=== PATIENT | female | born 1975 | race Caucasian/White ===

== ENCOUNTER 2017-05-17 14:14 | Inpatient (IN) | payer BC ==
[~2017-05-17] VITALS: Ht 162.6 cm; Wt 58.6 kg
[~2017-05-17 14:14] MED LIST: BACTRIM1 TAB; DULCOLAX5 MG PO; INSR; KEFLEX500 MG; LAC PO; LEVAQUIN500 MG PO; NOR10T PO; PROTONIX40 MG; REGLAN5 M1 PO
[2017-05-17 15:39] LABS: UA SPECIFIC GRAVITY 1.025 (1.005-1.035); microscopic required? YES; urine erythrocyte 3+ (NEGATIVE)
[2017-05-17 15:47] LABS: PLATELET COUNT 211 x10^3mcL (130-400); RED CELL DISTRIBUTION WIDTH 13.5 % (11.5-14.5)
[2017-05-17 15:54] LABS: CALCIUM 8.7 mg/dL (8.5-10.1); CARBON DIOXIDE 13.7 mmol/L (21-32); CHLORIDE SERUM 93 mmol/L (98-107); CREATININE SERUM 0.9 mg/dL (0.6-1.0); GFR1 > 60 mL/min; GLUCOSE SERUM 443 mg/dL (74-106); POTASSIUM SERUM 3.7 mmol/L (3.5-5.1); SODIUM SERUM 129 mmol/L (136-145)
[2017-05-17 16:03] LABS: ALKALINE PHOSPHATASE 114 U/L (46-116); ALT/SGPT 15 U/L (14-59); AST/SGOT 17 U/L (15-37); BILIRUBIN TOTAL 0.5 mg/dL (0.20-1.00); TOTAL PROTEIN, SERUM 7.9 g/dL (6.4-8.2)
[2017-05-17 16:10] LABS: CK-MB < 0.5 ng/mL (0-3.6); CREATINE KINASE 15 U/L (26-192)
[2017-05-17 16:30] LABS: BAND NEUTROPHIL 0 % (0-10); BASOPHIL 0 % (0-2); MONOCYTE 10 % (0-7); SEGMENTED NEUTROPHILS 85 % (37-75); rbc morphology (normal/abnorm) NORMAL (NORMAL)
[2017-05-17 16:31] LABS: PLATELET MORPHOLOGY PLATELETS NORMAL
[2017-05-17] MEDS ORDERED: RELION HUMUL100 U/M2 (18:24)
[2017-05-17 20:23] LABS: CHOLESTEROL/HDL RATIO 7.1
[2017-05-17 20:24] LABS: T3 TOTAL 0.12 ng/mL
[2017-05-17 20:27] LABS: FREE T4 1.3 ng/dL (0.76-1.46); FREE THYROXINE INDEX 2.5 ug/dL (1.4-4.5); T4(THYROXINE) 6.7 ug/dL (4.7-13.3)
[2017-05-17 20:52] LABS: CALCIUM 8.5 mg/dL (8.5-10.1); CARBON DIOXIDE 19.1 mmol/L (21-32); CHLORIDE SERUM 99 mmol/L (98-107); CREATININE SERUM 0.9 mg/dL (0.6-1.0); GFR1 > 60 mL/min; GLUCOSE SERUM 303 mg/dL (74-106); MAGNESIUM 1.7 mg/dL (1.8-2.4); PHOSPHOROUS 3.2 mg/dL (2.5-4.9); POTASSIUM SERUM 3.1 mmol/L (3.5-5.1); SODIUM SERUM 135 mmol/L (136-145)
[2017-05-17 21:14] LABS: AMPHETAMINE QUAL UR NONE DETECTED (NEG <=1000)
[2017-05-18 00:58] LABS: CALCIUM 7.7 mg/dL (8.5-10.1); CARBON DIOXIDE 18.8 mmol/L (21-32); CHLORIDE SERUM 105 mmol/L (98-107); CREATININE SERUM 0.7 mg/dL (0.6-1.0); GFR1 > 60 mL/min; GLUCOSE SERUM 249 mg/dL (74-106); MAGNESIUM 1.4 mg/dL (1.8-2.4); SODIUM SERUM 135 mmol/L (136-145)
[2017-05-18 02:57] VITALS: BP 81/55
[2017-05-18 04:00] VITALS: BP 88/59
[2017-05-18 05:55] LABS: CALCIUM 7.6 mg/dL (8.5-10.1); CARBON DIOXIDE 19.6 mmol/L (21-32); CHLORIDE SERUM 109 mmol/L (98-107); CREATININE SERUM 0.7 mg/dL (0.6-1.0); GFR1 > 60 mL/min; GLUCOSE SERUM 194 mg/dL (74-106); MAGNESIUM 1.5 mg/dL (1.8-2.4); SODIUM SERUM 137 mmol/L (136-145)
[2017-05-18 05:59] LABS: POTASSIUM SERUM 2.7 mmol/L (3.5-5.1)
[2017-05-18 07:59] VITALS: BP 87/60
[2017-05-18 10:03] LABS: CALCIUM 7.7 mg/dL (8.5-10.1); CARBON DIOXIDE 20.1 mmol/L (21-32); CHLORIDE SERUM 108 mmol/L (98-107); CREATININE SERUM 0.6 mg/dL (0.6-1.0); GFR1 > 60 mL/min; GLUCOSE SERUM 183 mg/dL (74-106); MAGNESIUM 1.9 mg/dL (1.8-2.4); PHOSPHOROUS 1.7 mg/dL (2.5-4.9); POTASSIUM SERUM 3.3 mmol/L (3.5-5.1); SODIUM SERUM 137 mmol/L (136-145)
[2017-05-18 12:20] VITALS: BP 109/80
[2017-05-18 18:07] VITALS: BP 105/54
[2017-05-18 21:00] VITALS: BP 88/60
[2017-05-19 01:00] VITALS: BP 82/59
[2017-05-19 02:00] VITALS: BP 95/58
[2017-05-19 04:00] VITALS: BP 117/72
[2017-05-19 05:44] VITALS: BP 102/60
[2017-05-19 06:54] LABS: CALCIUM 7.3 mg/dL (8.5-10.1); CHLORIDE SERUM 107 mmol/L (98-107); CREATININE SERUM 0.5 mg/dL (0.6-1.0); GFR1 > 60 mL/min; GLUCOSE SERUM 243 mg/dL (74-106); MAGNESIUM 1.6 mg/dL (1.8-2.4); PHOSPHOROUS 1.6 mg/dL (2.5-4.9); POTASSIUM SERUM 3.5 mmol/L (3.5-5.1); SODIUM SERUM 137 mmol/L (136-145)
[2017-05-19 08:48] LABS: RED CELL DISTRIBUTION WIDTH 14.1 % (11.5-14.5)
[2017-05-19 08:55] LABS: PLATELET COUNT 114 x10^3mcL (130-400)
[2017-05-19 09:18] VITALS: BP 113/66
[2017-05-19] MEDS ORDERED: NITROFURANTOIN100 MG PO (11:18)
[2017-05-19] MEDS ORDERED: LAC PO (11:19)
[2017-05-19] MEDS ORDERED: BACTRIM DS1 TAB PO (11:25)
[2017-05-19] MEDS ORDERED: LEVEMIR100 U/M1 SC (12:04)
[2017-05-19 12:31] LABS: BAND NEUTROPHIL 22 % (0-10); BASOPHIL 0 % (0-2); MONOCYTE 2 % (0-7); SEGMENTED NEUTROPHILS 71 % (37-75)
[2017-05-19 12:32] LABS: PLATELET MORPHOLOGY PLATELETS DECREASED; rbc morphology (normal/abnorm) NORMAL (NORMAL)
[2017-05-19 16:36] LABS: CALCIUM 7.3 mg/dL (8.5-10.1); CARBON DIOXIDE 22.5 mmol/L (21-32); CHLORIDE SERUM 108 mmol/L (98-107); CREATININE SERUM 0.4 mg/dL (0.6-1.0); GFR1 > 60 mL/min; GLUCOSE SERUM 221 mg/dL (74-106); SODIUM SERUM 137 mmol/L (136-145)
[2017-05-19 17:32] VITALS: BP 92/63
== END 2017-05-19 19:25 | disposition home or self-care (01) | DRG 871 ==
LOC: ED 14:14 → MU 18:09 → IC 18:09 → MU 05-18 12:20
PROVIDERS: Emergency Medicine; Family Medicine; ADMIT Family Medicine Sports Medicine
DX: A41.9 Sepsis, unspecified organism (principal); E13.10 Other specified diabetes mellitus with ketoacidosis without coma; N17.0 Acute kidney failure with tubular necrosis; N39.0 Urinary tract infection, site not specified; E87.1 Hypo-osmolality and hyponatremia; D68.69 Other thrombophilia; Z53.29 Procedure and treatment not carried out because of patient's decision for other reasons; R65.20 Severe sepsis without septic shock; R31.9 Hematuria, unspecified; D64.9 Anemia, unspecified; E87.6 Hypokalemia; E83.51 Hypocalcemia; E83.42 Hypomagnesemia; E86.0 Dehydration; Z79.4 Long term (current) use of insulin; Z68.24 Body mass index [BMI] 24.0-24.9, adult; Z90.49 Acquired absence of other specified parts of digestive tract; Z79.899 Other long term (current) drug therapy; Z83.3 Family history of diabetes mellitus; Z82.3 Family history of stroke; Z82.49 Family history of ischemic heart disease and other diseases of the circulatory system
CPT/HCPCS: 36600; 82962; 83880; 84439; 90658; J0696; J1815; J1885; J2270; J2405; J3475; J3480; J3490; J7030; J7040; Q0092

== ENCOUNTER 2017-05-20 15:05 | Inpatient (IN) | payer BC ==
[~2017-05-20] VITALS: Ht 162.6 cm; Wt 77.1 kg
[~2017-05-20 15:05] MED LIST changes: +BACTRIM DS1 TAB PO; +LEVEMIR100 U/M1 SC; +NITROFURANTOIN100 MG PO; +RELION HUMUL100 U/M2
[2017-05-20 17:50] LABS: BASOPHIL % 0.1 % (0-2); PLATELET COUNT 164 x10^3mcL (130-400); RED CELL DISTRIBUTION WIDTH 14.5 % (11.5-14.5)
[2017-05-20 17:51] LABS: CALCIUM 7.9 mg/dL (8.5-10.1); CARBON DIOXIDE 26.7 mmol/L (21-32); CHLORIDE SERUM 106 mmol/L (98-107); CREATININE SERUM 0.4 mg/dL (0.6-1.0); GFR1 > 60 mL/min; GLUCOSE SERUM 191 mg/dL (74-106); POTASSIUM SERUM 3.6 mmol/L (3.5-5.1); SODIUM SERUM 137 mmol/L (136-145)
[2017-05-20 17:56] LABS: ALKALINE PHOSPHATASE 100 U/L (46-116); ALT/SGPT 17 U/L (14-59); AST/SGOT 16 U/L (15-37); BILIRUBIN TOTAL 0.4 mg/dL (0.20-1.00)
[2017-05-20 17:58] LABS: ALBUMIN 1.9 g/dL (3.4-5.0); TOTAL PROTEIN, SERUM 5.5 g/dL (6.4-8.2)
[2017-05-21 01:14] VITALS: BP 123/85
[2017-05-21 01:22] VITALS: Ht 162.6 cm; Wt 77.1 kg
[2017-05-21 02:39] LABS: MAGNESIUM 1.8 mg/dL (1.8-2.4); PHOSPHOROUS 2.2 mg/dL (2.5-4.9)
[2017-05-21 05:38] VITALS: BP 112/72
[2017-05-21 10:08] VITALS: BP 115/80
[2017-05-21 13:27] LABS: BASOPHIL % 0.5 % (0-2); PLATELET COUNT 178 x10^3mcL (130-400); RED CELL DISTRIBUTION WIDTH 14.6 % (11.5-14.5)
[2017-05-21 13:37] LABS: CALCIUM 7.6 mg/dL (8.5-10.1); CHLORIDE SERUM 107 mmol/L (98-107); CREATININE SERUM 0.4 mg/dL (0.6-1.0); GFR1 > 60 mL/min; GLUCOSE SERUM 224 mg/dL (74-106); MAGNESIUM 1.7 mg/dL (1.8-2.4); PHOSPHOROUS 3.1 mg/dL (2.5-4.9); POTASSIUM SERUM 3.6 mmol/L (3.5-5.1); SODIUM SERUM 140 mmol/L (136-145)
[2017-05-21 14:38] VITALS: BP 131/89
[2017-05-21 16:23] LABS: UA SPECIFIC GRAVITY 1.015 (1.005-1.035); microscopic required? YES; urine erythrocyte 3+ (NEGATIVE)
[2017-05-21 16:34] LABS: IRON 30 ug/dL (50-170); TOTAL IRON BINDING CAPACITY 176 ug/dL (250-450)
[2017-05-21 16:59] LABS: RED BLOOD CELLS 3.38 M/mm3 (4.10-5.10)
[2017-05-21 17:11] VITALS: BP 118/82
[2017-05-21 20:42] VITALS: BP 127/87
[2017-05-22 06:43] LABS: BASOPHIL % 0.6 % (0-2); PLATELET COUNT 199 x10^3mcL (130-400)
[2017-05-22 06:46] VITALS: BP 128/89
[2017-05-22 06:54] LABS: RED CELL DISTRIBUTION WIDTH 15.1 % (11.5-14.5)
[2017-05-22 07:04] LABS: CALCIUM 7.9 mg/dL (8.5-10.1); CARBON DIOXIDE 29.3 mmol/L (21-32); CHLORIDE SERUM 107 mmol/L (98-107); CREATININE SERUM 0.3 mg/dL (0.6-1.0); GFR1 > 60 mL/min; GLUCOSE SERUM 136 mg/dL (74-106); MAGNESIUM 1.7 mg/dL (1.8-2.4); PHOSPHOROUS 3.1 mg/dL (2.5-4.9); POTASSIUM SERUM 3.6 mmol/L (3.5-5.1); SODIUM SERUM 140 mmol/L (136-145)
[2017-05-22 08:43] VITALS: BP 136/89
[2017-05-22] MEDS ORDERED: NOR10T PO (12:17)
[2017-05-22] MEDS ORDERED: LAC PO (12:19)
[2017-05-22 13:30] VITALS: BP 136/89
== END 2017-05-22 14:52 | disposition home or self-care (01) | DRG 438 ==
LOC: ED 15:05 → DU 05-21 00:26 → MU 05-22 06:44
PROVIDERS: Emergency Medicine; ADMIT Family Medicine
DX: K85.90 Acute pancreatitis without necrosis or infection, unspecified (principal); E43 Unspecified severe protein-calorie malnutrition; D68.69 Other thrombophilia; E11.65 Type 2 diabetes mellitus with hyperglycemia; K86.1 Other chronic pancreatitis; K86.81 Exocrine pancreatic insufficiency; E83.39 Other disorders of phosphorus metabolism; D64.9 Anemia, unspecified; M62.50 Muscle wasting and atrophy, not elsewhere classified, unspecified site; Z79.4 Long term (current) use of insulin; Z68.26 Body mass index [BMI] 26.0-26.9, adult; Z90.49 Acquired absence of other specified parts of digestive tract; Z83.3 Family history of diabetes mellitus; Z82.3 Family history of stroke
CPT/HCPCS: 82962; J1170; J1450; J1815; J1956; J2405; J3475; J7030

== ENCOUNTER 2017-06-15 17:47 | Inpatient (IN) | payer BC ==
[~2017-06-15] VITALS: Ht 162.6 cm; Wt 60.4 kg
--- NOTE | 2017-06-15 18:38 | NUR ---
AWAKE ALERT ORIENTED, STATED SINCE 11PM LAST NIGHT STARTED TO VOMIT,GREENISH COLORED FLUIDS,ALSO STARTED TO HAVE LOWER ABDOMINAL PAIN,
--- NOTE | 2017-06-15 18:57 | NUR ---
IV ESTABLISHED, MEDICATED FOR ABD, PAIN, ONE LIT NSS WIDE OPEN IN PROGRESS
--- NOTE | 2017-06-15 19:16 | NUR ---
RECIEVED REPORT FROM AZUL FRANCO. ASSUMING CARE OF PATIENT.
[2017-06-15 19:25] LABS: BASOPHIL % 0.3 % (0-2); PLATELET COUNT 318 x10^3mcL (130-400)
--- NOTE | 2017-06-15 19:27 | NUR ---
PT RESTING WITH EYES CLOSED. PT STATES HER PAIN IS NOW 4/10. PT STILL COMPLAINS OF NAUSEA. RESPIRATIONS EVEN AND UNLABORED. VITAL SIGNS STABLE. NO ACUTE DISTRESS NOTED.
[2017-06-15 19:38] LABS: CALCIUM 8.7 mg/dL (8.5-10.1); CARBON DIOXIDE 19.2 mmol/L (21-32); CHLORIDE SERUM 97 mmol/L (98-107); CREATININE SERUM 0.7 mg/dL (0.6-1.0); GFR1 > 60 mL/min; GLUCOSE SERUM 398 mg/dL (74-106); POTASSIUM SERUM 4.7 mmol/L (3.5-5.1); SODIUM SERUM 135 mmol/L (136-145)
[2017-06-15 19:43] LABS: ALBUMIN 3.2 g/dL (3.4-5.0); ALKALINE PHOSPHATASE 97 U/L (46-116); ALT/SGPT 12 U/L (14-59); AMYLASE 8 U/L (25-115); AST/SGOT 6 U/L (15-37); BILIRUBIN TOTAL 0.9 mg/dL (0.20-1.00); LIPASE 41 IU/L (73-393); TOTAL PROTEIN, SERUM 8.1 g/dL (6.4-8.2)
[2017-06-15 20:34] LABS: AMPHETAMINE QUAL UR NONE DETECTED (NEG <=1000)
--- NOTE | 2017-06-15 20:35 | NUR ---
PT STATES HER PAIN IS 8/10. PAIN MEDICATION GIVEN ORDERED. VITAL SIGNS STABLE RESPIRATIONS EVEN AND UNLABORED. NO ACUTE DISTRESS NOTED.
[2017-06-15] MEDS ORDERED: HUMULIN N100 U/1 ML SC (20:50)
[2017-06-15] MEDS ORDERED: HUMALOG100 U/ML SC (20:50)
--- NOTE | 2017-06-15 21:09 | NUR ---
REPORT GIVEN TO CHERRIE ON MED/TELE.
[2017-06-15 21:40] VITALS: BP 134/78
--- NOTE | 2017-06-15 21:46 | NUR ---
RECEIVED PATIENT FROM ED VIA GUERNEY, PATIENT ALERT AND ORIENTED SPOUSE AT BEDSIDE, IV ACCESS TO LAC WNL, TELE # 7 ST, C/O PAIN TO ABD WILL MEDICATE ORDERED, ORIENTED PATIENT TO ROOM AND SURROUNDINGS, BED IN LOW POSITION, BED RAILS UP X 2, CALL LIGHT WITHIN REACH, WILL ENDORSE CARE TO PRIMARY NURSE CHERRIE FRANCO
--- NOTE | 2017-06-15 22:00 | NUR ---
PT C/O NAUSEA. ZOFRAN 4 MG IV GIVEN.
[2017-06-15 22:13] LABS: T3 TOTAL 0.44 ng/mL
[2017-06-15 22:18] LABS: FREE T4 1.22 ng/dL (0.76-1.46); FREE THYROXINE INDEX 3.1 ug/dL (1.4-4.5); T4(THYROXINE) 8.3 ug/dL (4.7-13.3)
[2017-06-15 22:33] LABS: MAGNESIUM 1.9 mg/dL (1.8-2.4)
--- NOTE | 2017-06-15 22:40 | NUR ---
PT VERBALIZED NO RELIEF OF NAUSEA FROM ZOFRAN IV. WILL CONTINUE TO MONITOR AND MEDICATED ORDERED.
--- NOTE | 2017-06-15 22:40 | NUR ---
PT VERBALIZED NO RELIEF OF NAUSEA FROM ZOFRAN IV. WILL CONTINUE TO MONITOR AND MEDICATE ORDERED.
[2017-06-15 22:46] LABS: UA SPECIFIC GRAVITY 1.025 (1.005-1.035); microscopic required? YES; urine erythrocyte TRACE (NEGATIVE)
--- NOTE | 2017-06-15 22:54 | NUR ---
PT MEDICATED W/ PHENERGAN 12.5 MG IV FOR C/O NAUSEA AND TORADOL 30 MG IV FOR C/O ABDL PAIN 03/18.
--- NOTE | 2017-06-15 23:30 | NUR ---
PT APPEARS TO BE SLEEPING MORE COMFORTABLY . NO C/O NAUSEA AND PAIN AT THIS TIME.
--- NOTE | 2017-06-16 03:00 | NUR ---
K-PAD APPLIED TO ABDOMINAL AREA ORDERED.
--- NOTE | 2017-06-16 03:37 | NUR ---
PT C/O NAUSEA. NO VOMITING NOTED. PHENERGAN 12.5 MG IV GIVEN.
--- NOTE | 2017-06-16 04:05 | NUR ---
PT APPEARS TO BE SLEEPING COMFORTABLY. PT INFORMED AT THIS TIME. THAT CT DEPT WILL BE CALLED TO TAKE HER DOWN FOR CT ABDOMEN.
--- NOTE | 2017-06-16 06:08 | NUR ---
INFORMED DR. MOSER REGARDING ACCUCHECK [id number] ([id number]). PT WAS GIVEN 18 UNITS REG INSULIN COVERAGE PER RISS.
[2017-06-16 06:09] VITALS: BP 122/77
--- NOTE | 2017-06-16 06:24 | NUR ---
PT SLEPT AT LONG INTERVALS. SHE C/O ON AND OFF NAUSEA AND ABDL PAIN AND WAS MEDICATED ORDERED. PT ON NPO EXCEPT MEDS ORDERED. PT FOR CT OF ABDOMEN W/O CONTRAST. WAITING FOR VALVE MAKER AMBIKA TO COME AND TAKE PT DOWN. K-PAD TO ABDOMEN IN PLACE. IVF D5 1/2 NS AT 130 CC/HR INFUSING VIA LTAC.
[2017-06-16 07:17] LABS: BASOPHIL % 0.2 % (0-2); PLATELET COUNT 282 x10^3mcL (130-400); RED CELL DISTRIBUTION WIDTH 13.8 % (11.5-14.5)
--- NOTE | 2017-06-16 07:25 | NUR ---
A+OX4, NO RESPIRATORY DISTRESS NOTED, IN NO APPARANT PAIN, TELE 7, PULSES MODERATE AND EQUAL EDUARDO, NO EDEMA PRESENT, SCDS ON, LUNG SOUNDS CTA, TOLERATING RA, BOWEL SOUNDS ACTIVE, VOIDING, AMBULATORY, SKIN INTACT, IV IN LAC, SITE WNL, WBC 14.2, RBC 3.97, HGB 11.7, A1C 9.6.
[2017-06-16 07:34] LABS: CALCIUM 8.7 mg/dL (8.5-10.1); CARBON DIOXIDE 16.9 mmol/L (21-32); CHLORIDE SERUM 102 mmol/L (98-107); CREATININE SERUM 0.9 mg/dL (0.6-1.0); GFR1 > 60 mL/min; GLUCOSE SERUM 386 mg/dL (74-106); PHOSPHOROUS 3.3 mg/dL (2.5-4.9); POTASSIUM SERUM 4.5 mmol/L (3.5-5.1); SODIUM SERUM 137 mmol/L (136-145)
--- NOTE | 2017-06-16 08:53 | NUR ---
PT OFF UNIT FOR CT SCAN.
[2017-06-16 09:31] VITALS: BP 97/63
--- NOTE | 2017-06-16 09:35 | NUR ---
PT BACK ON UNIT, NO RESPIRATORY DISTRESS NOTED. PT AMBULATED FROM WHEELCHAIR BACK TO BED.
--- NOTE | 2017-06-16 10:34 | NUR ---
CT ABD AND PELVIS CRITICAL RESULT, DR OROZCO NOTIFIED.
--- NOTE | 2017-06-16 11:16 | NUR ---
ECHO CONCELLED. ECHO STUDY DONE
--- NOTE | 2017-06-16 12:05 | NUR ---
PT COMPLAINING OF PAIN, TROADOL GIVEN, AND NAUSEA, PHERNEGAN GIVEN, NO RESPIRATORY DISTRESS NOTED.
--- NOTE | 2017-06-16 12:24 | NUR ---
PER DR OROZCO VERBAL ORDERS, INSULIN TO BE HELD FOR BLOOD GLUCOSE 245 DUE TO PT BEING NPO AND HAVING CT WITH CONTRAST TODAY.
--- NOTE | 2017-06-16 13:07 | NUR ---
PT OFF UNIT FOR CT SCAN WITH CONTRAST.
--- NOTE | 2017-06-16 14:02 | NUR ---
PT STILL OFF UNIT FOR CT SCAN.
--- NOTE | 2017-06-16 14:45 | NUR ---
PT BACK ON UNIT, NO RESPIRATORY DISTRESS NOTED, NAUSEA AND PAIN TOELRABLE AT THIS TIME.
[2017-06-16 14:56] VITALS: BP 119/71
--- NOTE | 2017-06-16 14:56 | NUR ---
PT'S DAUGHTER CALLED BUT PT STATED SHE WOULD CALL HER BACK LATER, NO RESPIRATORY DISTRESS NOTED.
--- NOTE | 2017-06-16 15:03 | NUR ---
Initial Nutrition Assessment Dx: Vomiting, abd pain PMHx: DM type 2 and Chronic pancreatitis PSHx: Cholecystectomy (Lap), She has a history of pancreatic divisum diagnosed in 2014. A stent was placed in the pancreatic duct by Dr Johann Blanc [facility]. Labs: (06/16) BH, WBC:14.2H, Hgb:11.7H (06/15) Alb:3.2L, A1c:9.6H, Meds: Antivert, Colace, Humulin, Lactinex, NS IV, Zofran Diet:NPO due to nausea and vomiting PO Intake:N/A due to current NPO status Ht: 64in, 5'4" Wt: 133#, 60.44kg BMI:22.9kg/m2 (normal) IBW: 120#,55kg %IBW: 110% UBW:unable to obtain Age:42y/o female Food Allergies:unable to obtain Skin:intact Gera:21 Edema:None GI: active bowel sounds Last BM:06/13 Nursing Trigger: N/V/D>3days, poor PO intake>3days and unable to ingest diet for age. Pt admitted with sepsis secondary to UTI,DMOOC HbA1C 9.6 w possible HCS , Hematuria likely secondary to UTI and acute on chronic pancreatitis, per H&P. Per bed huddle this morning, pt with perinephric absncess and CT with Contrast will be done today. RD attempted to visit pt twice, both times pt was asleep and unarousable. Spoke to RN who reports pt continues with nausea and was given Phenergan. Pt also had two CT's done, one with contrast and one without per RN. Problem with: N: Yes V: NO D: No C:No Problems with: Chewing:No Swallowing:No per H&P Current appetite: poor prior to arrival. Pt currently NPO Recent wt change:unable to obtain %wt change:N/A Vitamin/Supplement use:none per H&P Special diet at home:Regular per admission assessment Physical activity: unable to obtain Education: unable to provide due to pt asleep and unarounsable. RD to provide education at follow up. Estimated Nutritional Needs Based on actual body weight 60 kg Energy:8194-0960 kcal/d (25-30kcal/kg for maintenance) Protein: 48-60g/d (0.8-1.0g/kg for maintenance) Fluid: 1500-1800ml/d (1 ml/kcal) or per doctor Nutrition Diagnosis 1. Altered nutrition labs related to endocrine dysfunction as evidenced by elevated B, A1c:9.6. 2. Inadequate protein/energy intake related to nausea as evidenced by current NPO status. Intervention 1. Recommend advance diet as tolerated to clear liquid, full liquid then CCHO. Monitor/Evaluate Goal: NPO<5-7days, diet advancement Monitor: NPO status, diet advancement, Labs, GI function F/U in 2-3days as high risk:06/18-
--- NOTE | 2017-06-16 15:05 | NUR ---
1. Recommend advance diet as tolerated to clear liquid, full liquid then CCHO.
--- NOTE | 2017-06-16 15:52 | NUR ---
PT COMPLAINING OF DIZZINESS AND NAUSEA, ANTIVERT AND PHENERGAN GIVEN.
[2017-06-16 17:37] VITALS: BP 141/82
--- NOTE | 2017-06-16 17:47 | NUR ---
PER DR OROZCO, INSULIN TO BE HELD FOR BLOOD GLUCOSE 266.
--- NOTE | 2017-06-16 18:03 | NUR ---
PT COMPLAINING OF 8/10 ABD PAIN, TORADOL GIVEN.
--- NOTE | 2017-06-16 18:51 | NUR ---
PT NOW ON CCHO DIET, GIVEN SANDWICH AND SUGAR FREE APPLE SAUCE, NO RESPIRATORY DISTRESS NOTED.
--- NOTE | 2017-06-16 19:55 | NUR ---
PT SEEN, RESTING IN BED, ALERT AND ORIENTED, DENIES HEADACHE OR DIZZINESS, BREATHING EVEN AND UNLABORED, NO SOB, LUNG SOUNDS CLEAR, ON ROOM AIR WITH NO RESP DISTRESS NOTED, ON TELE#7 ST, DENIES CHEST PAIN, IVF INFUSING WELL, PULSES PALPABLE, NO EDEMA NOTED, AMBULATORY WITH STEADY GAIT, POOR APPETITE, ABD SOFT AND FLAT WITH ACTIVE BS, NO BM AT THIS TIME, VOIDING FREELY, C/O OF NAUSEOUS AT TIMES, K-PAD IN PLACE, NO DISTRESS NOTED, WILL KEEP TO MONITOR.
[2017-06-16 21:10] VITALS: BP 115/66
[2017-06-16 21:22] VITALS: BP 133/80
--- NOTE | 2017-06-17 06:06 | NUR ---
PT ASLEEP BUT EASILY AROUSABLE, SLEPT MOST OF NIGHT, GAVE ONE TIME TORADOL, DILAUDID, PHENERGAN AND ZOFRAN WITH GOOD RELIEF, MORNING BLOOD SUGAR-293 MG/DL WITH RISS 9 UNITS, STILL NAUSEOUS AT TIMES, NO DISTRESS NOTED, WILL KEEP TO MONITOR.
[2017-06-17 06:22] VITALS: BP 138/84
[2017-06-17 07:25] LABS: BASOPHIL % 0.1 % (0-2); PLATELET COUNT 237 x10^3mcL (130-400); RED CELL DISTRIBUTION WIDTH 13.7 % (11.5-14.5)
--- NOTE | 2017-06-17 07:33 | NUR ---
A+OX4, NO RESPIRATORY DISTRESS NOTED, TELE 7, PULSES MODERATE AND EQUAL EDUARDO, NO EDEMA PRESENT, SCDS ON, LUNG SOUNDS CTA, TOLERATING RA, BOWEL SOUNDS ACTIVE, VOIDING, AMBULATORY, SKIN INTACT, IV IN LAC WITH NS @ 100 ML/HR, SITE WNL, WBC 12.4, RBC 3.81, HGB 11.4, HCT 34.
[2017-06-17 07:44] LABS: CALCIUM 8.4 mg/dL (8.5-10.1); CARBON DIOXIDE 16.5 mmol/L (21-32); CHLORIDE SERUM 102 mmol/L (98-107); CREATININE SERUM 0.7 mg/dL (0.6-1.0); GFR1 > 60 mL/min; GLUCOSE SERUM 318 mg/dL (74-106); SODIUM SERUM 135 mmol/L (136-145)
--- NOTE | 2017-06-17 08:16 | NUR ---
PT HAD "ACCIDENT" AND BED AND VOIDED, LINENS CHANGED, NO RESPIRATORY DISTRESS NOTED, COMPLAINING OF ABD PAIN AND NAUSEA, TORADOL AND PHENERGAN GIVEN.
--- NOTE | 2017-06-17 08:43 | NUR ---
PT RESTING IN BED, NO RESPIRATORY DISTRESS NOTED, RESIDENTS IN ROOM TO SPEAK TO PT.
[2017-06-17 09:59] VITALS: BP 120/81
--- NOTE | 2017-06-17 11:49 | NUR ---
PT RESTING IN BED, COMPLAINING OF NAS[place]A, EMESIS BAGS AT BEDSIDE, NO RESPIRATORY DISTRESS NOTED.
--- NOTE | 2017-06-17 13:04 | NUR ---
PT RESTING IN BED, NO RESPIRATORY DISTRESS NOTED.
[2017-06-17 13:54] VITALS: BP 135/81
--- NOTE | 2017-06-17 14:06 | NUR ---
PT GIVEN TORADOL FOR TEMP 101.5 AND ABD PAIN 8/10, NO RESPIRATORY DISTRESS NOTED.
--- NOTE | 2017-06-17 15:45 | NUR ---
PT RESTING IN BED, NO RESPIRATORY DISTRESS NOTED, COMPLAINING OF NAUSEA.
--- NOTE | 2017-06-17 16:26 | NUR ---
PT RESTING IN BED, NO RESPIRATORY DISTRESS NOTED, COMPLAINING OF NAUSEA, PHENERGAN GIVEN.
--- NOTE | 2017-06-17 17:33 | NUR ---
TYLENOL GIVEN FOR TEMP 102, ICE PACKS PLACED ON PRESSURE POINTS, BLANKETS REMOVED, AC PLACED ON HIGH.
[2017-06-17 17:36] VITALS: BP 113/70
--- NOTE | 2017-06-17 19:15 | NUR ---
PT SEEN, RESTING IN BED, ALERT AND ORIENTED, DENIES HEADACHE OR DIZZINESS, BREATHING EVEN AND UNLABORED, NO SOB, LUNG SOUNDS CLEAR, ON ROOM AIR WITH NO RESP DISTRESS NOTED, MEDSURG PT, DENIES CHEST PAIN, IVF INFUSING WELL, PULSES PALPABLE, NO EDEMA NOTED, AMBULATORY WITH STEADY GAIT, POOR APPETITE, ABD SOFT AND FLAT WITH ACTIVE BS, NO BM AT THIS TIME, VOIDING FREELY, C/O OF NAUSEOUS AT TIMES, K-PAD IN PLACE, NO DISTRESS NOTED, WILL KEEP TO MONITOR.
[2017-06-17 21:00] VITALS: BP 108/54
--- NOTE | 2017-06-18 05:53 | NUR ---
PT ASLEEP BUT EASILY AROUSABLE, SLEPT MOST OF NIGHT, GAVE TWO TIMES TORADOL AND PHENERGAN IVP X 2 WITH GOOD RELIEF, IVF INFUSING WELL, MORNING BLOOD SUGAR-189 MG/DL WITH RISS 3 UNITS, NO DISTRESS NOTED, WILL KEEP TO MONITOR.
[2017-06-18 06:29] VITALS: BP 125/80
[2017-06-18 07:26] LABS: CALCIUM 7.9 mg/dL (8.5-10.1); CARBON DIOXIDE 24.3 mmol/L (21-32); CHLORIDE SERUM 105 mmol/L (98-107); CREATININE SERUM 0.4 mg/dL (0.6-1.0); GFR1 > 60 mL/min; GLUCOSE SERUM 191 mg/dL (74-106); POTASSIUM SERUM 3.4 mmol/L (3.5-5.1); SODIUM SERUM 137 mmol/L (136-145)
[2017-06-18 07:31] LABS: BASOPHIL % 0.2 % (0-2); PLATELET COUNT 247 x10^3mcL (130-400); RED CELL DISTRIBUTION WIDTH 13.9 % (11.5-14.5)
--- NOTE | 2017-06-18 08:00 | NUR ---
RECEIVED PATIENT ALERT AND ORIENTED TIMES FOUR. PATIENT WITH CLEAR BREATH SOUNDS AND BLWEO SOUNDS ACTIVE. IV INTACT AND CONTINUED ON IV ROCEPHIN AND NO ADVERSE REACTION NOTED. PATIENT HAS BEEN WITH FEVERS REPORTED YESTERDAY AND AT 99.2, 100, 18, 125/80, 99%. PATINICK THAS LAST BLOOD SUGAR AT 189 AND RECIEVED 3 UNITS OF REGULAR OREDERED. APTEINT NOTED LABS OF H AND HF O F10.2/3, AND CA AT 7.9 AND POTASSIUM AT 3.4. PATIENT IS AMBULATORY AND NO ACUTE DISTRESS AT THIS TIME.
--- NOTE | 2017-06-18 08:00 | NUR ---
RECEIVED PATIENT ALERT AND ORIENTED TIMES FOUR. DENIES PAIN AT THIS TIME. LUNGS ARE CLEAR AND BOWEL SOUNDS ACTIVE AND SKIN IS WARM AND DRY. IV INTACT AND PATIENT HAS TOLERATED OOB WITHOUT ASSIST AND NO COMPLAINTS OF DIZZINESS OR NAUSEA. NOTED PATIENT IS POSITIVE FOR UTI AND CONTINUED ON ROCEPHIN ORDERED AND NO ADVERSE REACTION NOTED. VITALS AT THIS TIME AT 99.7, 100,M 18, 125/90, 99%. PATINET LAST DOSE OF MEDICATION FOR PAIN WAS AT 310 AM AND WAS TORADOL AND APPEARS TO HAVE BEEN EFFECTIVE. PATIENT HAS LAST BLOOD SUGAR AT THIS TIME AT 189 AMD 3 UITS OF REGULAR WAS GIVEN. NOTED LABS ARE H AND H OF 10.1/31, POTASSIUM OF 3.4, AND CALCIUM OF 7.9. CHEST XRAY WAS NEGATIVE. WILL CONTINUE TO MONITOR INDICATED.
--- NOTE | 2017-06-18 08:00 | NUR ---
RECEIVED PATIENT WHO SPEAKS SPAINISH ONLY AND IS WITH NO COMPLAINTS OF PAIN AT STHI TIME. DISPITE THE DRESSING ON THE HEAD AND HER FALL SHE IS IN GOOD SPIRIT AND SHE DID MENTION SHE DID NOT SLEEP WELL BUT PER THE [employer] STORE CLERK SHE WAS SLEEPING THROUGH THE NIGHT WHEN CHECKED ON. SHE HAS TOLERATE DIET AND FLUIDS AND HAS BEEN OOB WITH MINIMAL ASSIST AND AMBULATED WITHOUT DIFFICULTY. DRESSING TO THE HEAD INTACT AND TO THE LEFT ARM ALSO INTACT AND DRY. PATIENT HAS CLEAR BREATH SOUNDS AND ON 02 BUT DOES NOT SEEM TO NEED AT THIS TIME AND WILL ATTEMPT TO HAVE HER ON ROOM AIR AND SEE HOW HE DOES. THE VITALS AT THIS TIME AT 99.2, 80, 18, 121/66, 96% ON 02 AT 2 LITERA. HERIBERTO CEDENO RESPIRATORY PROTOCAL AND AHS HAS BEEN ON ROCEPHIN AND NO ADVERSE REACTION NOTED. MIRNA RODASIVES ALONE AND HAS LAST BLOOD SUGAR AT 119. NOTED LABS ARE THE H AND H OF 8.6/26, BUN O F46.0, CREATININE AT 2.1 AND MIRNA CEDENO BEEN BENZOPINE POSITIVE IN THE URINE. SHE HAS A POSITIVE URINE FOR BACTERIA ALSO NTOED. MIRNA PEARCE HISTOYR OF HTN, KNEE REPLACEMETNT AND ARTHRITIS. WILL CONTINUE TO MONITOR INDICATED.
--- NOTE | 2017-06-18 09:45 | NUR ---
SEN BY THE SUPERVISOR TILE AND MOTTLE AND RESIDENT AND PLAN OF CARE DISCUSSED. PATIENT FOR DISCHARGE HOME PLANNED FOR TOMORROW. PATIENT IS AWARE AND WAS ADVISEDD IN SPAINISH INDICATED.
--- NOTE | 2017-06-18 10:09 | NUR ---
OOB WITH PT AND WITH WALKER AND DOING VERY WELL. PATIENT DENIES PAIN AND IV INTACT. PATIENT HAS TOLERATED DIET AND FLUIDS WELL.
[2017-06-18 10:21] VITALS: BP 142/88
--- NOTE | 2017-06-18 10:39 | NUR ---
REPORTED TEMPERATURE OF 100.5. PATIENT HAS RECEIVED TORADOL ALREADY BUT WILL OFFER TYLENOL INDICATED. STILL AWAITING CULTURE RESULTS FOR THE UTI.
--- NOTE | 2017-06-18 10:57 | NUR ---
GAVE TYLENOL FOR TEMPERATURE OF 100.5. WILL CONTINUE TO MONITOR FOR EFFECTIVENESS.
--- NOTE | 2017-06-18 12:09 | NUR ---
PATEINT WIHT BLOOD SUGAR OF 226 AND WILL GIVE COVERAGE INDICATED. PATIENT HAS RECEIVED THE TYLENOL FOR FEVER WELL THE SUSEPTABILTY FOR THE ORGANISM IN THE URINE IS BACK AND THE PATIENT IS ON AN APPROPRIATE ANTIBIOIIC.
--- NOTE | 2017-06-18 12:33 | NUR ---
PATIENTS FEVER REDUCED AT THIS TIME. ENCOURAGED FLUIDS AND DIET. NO COMPLAINYS OF PAIN NOTED.
--- NOTE | 2017-06-18 14:57 | NUR ---
RESTING ON AND OFF AND NO COMPLAINTS OF BREAKTHOUGH PAIN NOTED.
--- NOTE | 2017-06-18 15:00 | NUR ---
TYELNOL AND TORADOL WITH PHENERGAN WAS EFFECTIVE. PATIENT IS RESTING QUIELTY AT THIS TIME.
--- NOTE | 2017-06-18 15:45 | NUR ---
Follow-up Nutrition Assessment Dx:Vomiting, abd pain Labs: (06/18) K:3.4L BH, Ca:7.9L, H/H:10.1/31L Meds: Antivert, Colace, Humulin, Lactinex, Levemir, Phenegan, NS IV, Theragran, Zofran Diet: CCHO PO intake: (06/17) B:10%, L:20%, D:20% (06/18) B:40% (Av%) Weights: (06/15) 133#, 60.44kg (06/18) 146# pt looks closer to admit wt:133# Skin: intact Edema: None Last BM: 06/14 Per progress note 06/17, pt with sepsis secondary to UTI and acute on chronic pancreatitis. WBC 14.2=>12.4,Temperature of 101.5 and urine culture; gram negative bacillus, sensitivity to follow. Per bed huddle this morning, pt CT of abdomen showed pyelonephritis. During visit, pt was laying in bed with at bedside. Pt still c/o nausea but no emesis. And no c/o diarrhea or constipation. Pt reports to being hungry but unable to eat much due to nausea. Pt said she ate 1/2 of her taco and soup for lunch. RD obtained food preferences (pt requested jell-o with meals) Estimated Nutritional Needs unchanged from prior assessment:on actual body weight 60kg Energy: 1500-1800kcal/day (25-30kcal/kg for maintenance) Protein: 48-60g/day (0.8-1.0g/kg for maintenance) Fluid:1500-1800ml/day (1ml/kcal) or per doctor Nutrition Diagnosis 1. Altered nutrition labs related to endocrine dysfunction as evidenced by elevated B, A1c:9.6 (ongoing, BG trending down) 2. Inadequate protein/energy intake related to nausea as evidenced by current NPO status (resolved pt on CCHO diet) Intervention Monitor/Evaluate Previous goal: NPO<5-7days and diet advancement (met) Goal: PO intake at least 75% of estimated needs Monitor: PO intake, Labs, GI function F/U in 3-5days as moderate risk: 06/21-
--- NOTE | 2017-06-18 15:46 | NUR ---
1. Recommend continue with [facility] diet. 2. RD to update food preferences on compnutrition.
--- NOTE | 2017-06-18 16:30 | NUR ---
PATIENT WITH BLOOD SUGAR AT 270 AND WILL BE GIVING 9 UNITS OF REGULAR.
[2017-06-18 17:24] VITALS: BP 138/84
--- NOTE | 2017-06-18 18:06 | NUR ---
PATIENT BLOOD SUGAR AT THIS TIME AT 270 AND GAVE 9 UNITS OF REGULAR. PATEINT STATES FEVER AND WILL GIVE TYLENOL IF DUE. GAVE TORADOL AND PHENERGAN PER THE PATIENT REQUEST AND WILL CONTINUE TO MONITOR INDICATED.
--- NOTE | 2017-06-18 19:52 | NUR ---
Awake and verbally responsive. No resp.distress noted. Denies pain at this time. Denies n/v. Will cont.to monitor. Call light within reach.
[2017-06-18 20:46] VITALS: BP 135/85
--- NOTE | 2017-06-19 04:12 | NUR ---
Afebrile. No significant change in condition noted. Pain controlled. Medicated as ordered with toradol for pain with relief. Phenergan IV for nausea but no vomiting noted. Cont.on IV rocephin. In no apparent distress.
[2017-06-19 04:52] VITALS: BP 132/81
--- NOTE | 2017-06-19 08:00 | NUR ---
RECEIVED PATIENT SLEEPING BUT WAS ARROUSABLE BY THE TIME MEDICATION PASS. PATIENT HAS CLEAR BREATH SOUNDS AND BOWLE SOUNDS ACTIVE. SHE HAS BEEN ON TORDOL AND OPHERNGEN FOR NAUSEA AND PAIN AND HAS BEEN EFFECTIVE OVER NIGHT. PATIENT HAS BEEN OON ROCPHIN FOR THE UROSEPSIS AND NO ADVERSE REACTION NOTED.TOLERATE OOB AND NOTED PATIENT WITH HYDRONEOPHROSIS TO THE LEFT KIDNEY. PATIENT AHS BEE WITH BRP AND AMBULATORY. NO EDEMA NOTED TO THE LOWER EXTREMTEIS AT THIS TIME AND ON SCDS ORDERED. PATIENT HAS A FIAR APPETITE BUT NOT COMPLETELY TAKING IN HER MEALS ORDERED. SHE DENIES PAIN OR NAUSEA AT THIS TIME. WILL CONTINUE TO MONITOR INDICATED.
--- NOTE | 2017-06-19 09:33 | NUR ---
DISCUSSED THE BLOOD SUGAR ISSUES THIS AM AND PATIENT REFUSED FOR NOW THE LEVIMIR ORDERED. WILL ADVISE THE GROUP FITNESS INSTRUCTOR. PATIENT HAD LOW BLOOD SUGAR INDICATING INTERVENTION TO BRING THE SUGAR UP THIS AM ON NOC SHIFT. SHE HAS ANOTHER 35 UNITS ORDERE DTHIS AM AND PATIENT AND STAFF ARE NOT COMFORTABLE GIVING AT THIS TIME
[2017-06-19 09:46] VITALS: BP 119/77
[2017-06-19 09:53] LABS: BASOPHIL % 0.2 % (0-2); PLATELET COUNT 169 x10^3mcL (130-400); RED CELL DISTRIBUTION WIDTH 13.9 % (11.5-14.5)
[2017-06-19 09:58] LABS: CALCIUM 8.3 mg/dL (8.5-10.1); CARBON DIOXIDE 24.4 mmol/L (21-32); CHLORIDE SERUM 105 mmol/L (98-107); CREATININE SERUM 0.4 mg/dL (0.6-1.0); GFR1 > 60 mL/min; GLUCOSE SERUM 137 mg/dL (74-106); POTASSIUM SERUM 3.7 mmol/L (3.5-5.1); SODIUM SERUM 138 mmol/L (136-145)
[2017-06-19] MEDS ORDERED: LEVEMIR100 U/M1 SC (11:34)
[2017-06-19] MEDS ORDERED: LAC PO (11:37)
[2017-06-19] MEDS ORDERED: LEVOFLOXACIN750 M1 PO (11:40)
--- NOTE | 2017-06-19 12:00 | NUR ---
VANGIE HAD BLOOD SUGAR AT 150 AT LUNCH AND NO COVERAGE WAS GIVEN. PATIENT RESTING QUIETLY AT THIS TIME. NO COMPLAINTS OF PAIN.
--- NOTE | 2017-06-19 12:46 | NUR ---
PATIEN IS FOR DISCHARGE HOME TODAY. WILL START AND GIVE PAPERWORK INDICATED. PATIENT IS ALRIGHT WITH DISCHARGE PLAN.
--- NOTE | 2017-06-19 12:47 | NUR ---
SEEN BY THE INTERNS AND DR PERRY AND PLAN OF CARE DISCUSSED.
[2017-06-19 13:08] VITALS: BP 119/77
--- NOTE | 2017-06-19 13:21 | NUR ---
IV REMOVED AND FINISHING THE DISCHARGE PAPERWORK AND PLAN FOR DISCHARGE TODAY. PATIENT HAS NOT HAD A FEVER TODAY AND NO COMPLAINTS OF PAIN AT THIS TIME.
[2017-06-19 13:50] VITALS: BP 140/86
--- NOTE | 2017-06-19 16:00 | NUR ---
DISCHARGED TO HOME WITH ALL BELONGINGS AND ENCOURAGED FLUID AND POSSIBLE TAKING SUPPLIMENTS FOR HER LOW HEMAGLOBIN AND SHE IS TO BE TAKING LEVAQUIN ORDERED FOR FIVE DAYS. REQUESTED FOR THE PATIENT A NOTE FOR WORK OPN HER STAY AND TO BE CLEARED TO GO BACK TO WORK. PATIENT WAS IN NO PAIN OR DISTRESS AT TIME OF DISCHARGE.
[2017-06-19 18:04] VITALS: Ht 162.6 cm; Wt 60.4 kg
== END 2017-06-19 15:35 | disposition home or self-care (01) | DRG 871 ==
LOC: ED 17:47 → DU 20:51 → MU 06-17 19:05
PROVIDERS: Emergency Medicine; Family Medicine; Student in an Organized Health Care Education/Training Program; ADMIT Family Medicine Sports Medicine
DX: A41.9 Sepsis, unspecified organism (principal); K85.90 Acute pancreatitis without necrosis or infection, unspecified; N39.0 Urinary tract infection, site not specified; E87.1 Hypo-osmolality and hyponatremia; E44.1 Mild protein-calorie malnutrition; D68.69 Other thrombophilia; K86.1 Other chronic pancreatitis; N12 Tubulo-interstitial nephritis, not specified as acute or chronic; R65.20 Severe sepsis without septic shock; E11.43 Type 2 diabetes mellitus with diabetic autonomic (poly)neuropathy; E11.65 Type 2 diabetes mellitus with hyperglycemia; K31.84 Gastroparesis; R31.9 Hematuria, unspecified; E87.8 Other disorders of electrolyte and fluid balance, not elsewhere classified; Z68.22 Body mass index [BMI] 22.0-22.9, adult; Z79.4 Long term (current) use of insulin; Z90.49 Acquired absence of other specified parts of digestive tract; Z82.49 Family history of ischemic heart disease and other diseases of the circulatory system; Z83.3 Family history of diabetes mellitus
CPT/HCPCS: 82962; 83880; 84439; J0696; J1815; J1885; J2405; J2550; J3010; J3490; J7030; J8597; Q9966; Q9967

== ENCOUNTER 2017-11-28 22:07 | Inpatient (IN) | payer BC ==
[~2017-11-28] VITALS: Ht 162.6 cm; Wt 74.8 kg
[~2017-11-28 22:07] MED LIST changes: +HUMALOG100 U/ML SC; +HUMULIN N100 U/1 ML SC; +LEVOFLOXACIN750 M1 PO
[2017-11-28 23:27] LABS: BASOPHIL % 0.1 % (0-2); PLATELET COUNT 284 x10^3mcL (130-400); RED CELL DISTRIBUTION WIDTH 12.7 % (11.5-14.5)
[2017-11-28 23:51] LABS: BILIRUBIN TOTAL 0.6 mg/dL (0.20-1.00); CALCIUM 9.4 mg/dL (8.5-10.1); CREATININE SERUM 1.2 mg/dL (0.6-1.0); POTASSIUM SERUM 3.3 mmol/L (3.5-5.1)
[2017-11-28 23:52] LABS: ALBUMIN 3.1 g/dL (3.4-5.0); TOTAL PROTEIN, SERUM 8.3 g/dL (6.4-8.2)
[2017-11-28 23:54] LABS: CARBON DIOXIDE 9.9 mmol/L (21-32)
[2017-11-29] MEDS ORDERED: GABAPENTIN100 M2 PO (01:15)
[2017-11-29] MEDS ORDERED: HUMULIN N100 U/1 ML SC (01:16)
[2017-11-29] MEDS ORDERED: LEVEMIR100 U/M1 SC (01:16)
[2017-11-29 01:56] LABS: T3 TOTAL 0.38 ng/mL
[2017-11-29 01:57] LABS: FREE T4 1.3 ng/dL (0.76-1.46); FREE THYROXINE INDEX 2.2 ug/dL (1.4-4.5); T4(THYROXINE) 6.4 ug/dL (4.7-13.3)
[2017-11-29 02:09] LABS: CHOLESTEROL/HDL RATIO 5.9
[2017-11-29 02:24] VITALS: BP 107/57
[2017-11-29 05:47] LABS: CALCIUM 8.7 mg/dL (8.5-10.1); CARBON DIOXIDE 11.1 mmol/L (21-32); CREATININE SERUM 1.3 mg/dL (0.6-1.0); MAGNESIUM 1.9 mg/dL (1.8-2.4)
[2017-11-29 05:58] LABS: PLATELET COUNT 327 x10^3mcL (130-400)
[2017-11-29 06:00] LABS: BASOPHIL % 0 % (0-2); PHOSPHOROUS 0.8 mg/dL (2.5-4.9); POTASSIUM SERUM 2.7 mmol/L (3.5-5.1)
[2017-11-29] MEDS ORDERED: NOVOLIN N100 U/ML SC (06:18)
[2017-11-29 07:27] VITALS: BP 108/68
[2017-11-29 08:34] LABS: CALCIUM 8.9 mg/dL (8.5-10.1); CARBON DIOXIDE 15.1 mmol/L (21-32); CREATININE SERUM 1.1 mg/dL (0.6-1.0); MAGNESIUM 1.9 mg/dL (1.8-2.4)
[2017-11-29 08:40] LABS: PHOSPHOROUS 0.7 mg/dL (2.5-4.9); POTASSIUM SERUM 2.7 mmol/L (3.5-5.1)
[2017-11-29 11:35] VITALS: BP 116/78
[2017-11-29 12:14] LABS: microscopic required? YES; urine erythrocyte 3+ (NEGATIVE)
[2017-11-29 12:41] LABS: AMPHETAMINE QUAL UR NONE DETECTED (NEG <=1000)
[2017-11-29 14:14] LABS: CALCIUM 8.1 mg/dL (8.5-10.1); CARBON DIOXIDE 18.6 mmol/L (21-32); CHLORIDE SERUM 118 mmol/L (98-107); CREATININE SERUM 0.9 mg/dL (0.6-1.0); GFR1 > 60 mL/min; GLUCOSE SERUM 161 mg/dL (74-106); MAGNESIUM 1.9 mg/dL (1.8-2.4); PHOSPHOROUS 1.1 mg/dL (2.5-4.9); POTASSIUM SERUM 3.4 mmol/L (3.5-5.1); SODIUM SERUM 145 mmol/L (136-145)
[2017-11-29 15:42] VITALS: BP 119/64
[2017-11-29 16:52] LABS: CALCIUM 8.1 mg/dL (8.5-10.1); CARBON DIOXIDE 19.6 mmol/L (21-32); CHLORIDE SERUM 116 mmol/L (98-107); CREATININE SERUM 0.9 mg/dL (0.6-1.0); GFR1 > 60 mL/min; GLUCOSE SERUM 272 mg/dL (74-106); MAGNESIUM 1.7 mg/dL (1.8-2.4); PHOSPHOROUS 1.2 mg/dL (2.5-4.9); POTASSIUM SERUM 3.1 mmol/L (3.5-5.1); SODIUM SERUM 144 mmol/L (136-145)
[2017-11-29 19:30] VITALS: BP 107/59
[2017-11-29 23:06] LABS: CALCIUM 7.8 mg/dL (8.5-10.1); CHLORIDE SERUM 115 mmol/L (98-107); CREATININE SERUM 0.9 mg/dL (0.6-1.0); GFR1 > 60 mL/min; GLUCOSE SERUM 231 mg/dL (74-106); MAGNESIUM 2.2 mg/dL (1.8-2.4); POTASSIUM SERUM 3.2 mmol/L (3.5-5.1); SODIUM SERUM 143 mmol/L (136-145)
[2017-11-30] VITALS (7 sets, daily range): BP systolic 84–112; BP diastolic 51–82
[2017-11-30 05:42] LABS: PLATELET COUNT 242 x10^3mcL (130-400); RED CELL DISTRIBUTION WIDTH 13.4 % (11.5-14.5)
[2017-11-30 05:43] LABS: BASOPHIL % 0 % (0-2)
[2017-11-30 05:52] LABS: CALCIUM 7.9 mg/dL (8.5-10.1); CARBON DIOXIDE 21.1 mmol/L (21-32); CHLORIDE SERUM 117 mmol/L (98-107); CREATININE SERUM 0.8 mg/dL (0.6-1.0); GFR1 > 60 mL/min; GLUCOSE SERUM 120 mg/dL (74-106); MAGNESIUM 2.1 mg/dL (1.8-2.4); PHOSPHOROUS 1.5 mg/dL (2.5-4.9); SODIUM SERUM 145 mmol/L (136-145)
[2017-12-01 03:30] VITALS: BP 126/80
[2017-12-01 05:53] LABS: BASOPHIL % 0.2 % (0-2); PLATELET COUNT 198 x10^3mcL (130-400); RED CELL DISTRIBUTION WIDTH 13.5 % (11.5-14.5)
[2017-12-01 06:10] LABS: CALCIUM 7.6 mg/dL (8.5-10.1); CARBON DIOXIDE 18.5 mmol/L (21-32); CHLORIDE SERUM 105 mmol/L (98-107); CREATININE SERUM 0.6 mg/dL (0.6-1.0); GFR1 > 60 mL/min; GLUCOSE SERUM 360 mg/dL (74-106); MAGNESIUM 1.8 mg/dL (1.8-2.4); PHOSPHOROUS 1.6 mg/dL (2.5-4.9); POTASSIUM SERUM 3.6 mmol/L (3.5-5.1); SODIUM SERUM 136 mmol/L (136-145)
[2017-12-01 07:30] VITALS: BP 124/78
[2017-12-01 11:37] VITALS: BP 124/79
[2017-12-01 16:45] VITALS: BP 95/63
[2017-12-01 19:45] VITALS: BP 92/56
[2017-12-01 23:37] VITALS: BP 93/61
[2017-12-02] VITALS (7 sets, daily range): BP systolic 96–109; BP diastolic 58–78; Ht 162.6 cm; Wt 74.8 kg
[2017-12-02 05:21] LABS: BASOPHIL % 0.4 % (0-2); PLATELET COUNT 152 x10^3mcL (130-400); RED CELL DISTRIBUTION WIDTH 13.6 % (11.5-14.5)
[2017-12-02 05:36] LABS: CALCIUM 7.3 mg/dL (8.5-10.1); CARBON DIOXIDE 22.7 mmol/L (21-32); CHLORIDE SERUM 111 mmol/L (98-107); CREATININE SERUM 0.6 mg/dL (0.6-1.0); GFR1 > 60 mL/min; GLUCOSE SERUM 173 mg/dL (74-106); MAGNESIUM 1.9 mg/dL (1.8-2.4); PHOSPHOROUS 1.7 mg/dL (2.5-4.9); POTASSIUM SERUM 3.6 mmol/L (3.5-5.1); SODIUM SERUM 141 mmol/L (136-145)
[2017-12-03 05:52] VITALS: BP 102/69
[2017-12-03 06:03] LABS: PLATELET COUNT 252 x10^3mcL (130-400); RED CELL DISTRIBUTION WIDTH 13.8 % (11.5-14.5)
[2017-12-03 06:21] LABS: CARBON DIOXIDE 25.5 mmol/L (21-32); CHLORIDE SERUM 108 mmol/L (98-107); CREATININE SERUM 0.6 mg/dL (0.6-1.0); GFR1 > 60 mL/min; GLUCOSE SERUM 99 mg/dL (74-106); PHOSPHOROUS 2.5 mg/dL (2.5-4.9); POTASSIUM SERUM 4.3 mmol/L (3.5-5.1); SODIUM SERUM 140 mmol/L (136-145)
[2017-12-03 09:42] VITALS: BP 91/57
[2017-12-03 11:44] LABS: BAND NEUTROPHIL 5 % (0-10); BASOPHIL 0 % (0-2); MONOCYTE 11 % (0-7); SEGMENTED NEUTROPHILS 68 % (37-75)
[2017-12-03 13:47] VITALS: BP 141/92
[2017-12-03 17:59] VITALS: BP 139/88
[2017-12-03 21:15] VITALS: BP 120/76
[2017-12-04 04:25] VITALS: BP 169/104
[2017-12-04 06:24] VITALS: BP 163/105
[2017-12-04 08:01] LABS: CALCIUM 8.1 mg/dL (8.5-10.1); CARBON DIOXIDE 27.7 mmol/L (21-32); CHLORIDE SERUM 102 mmol/L (98-107); CREATININE SERUM 0.5 mg/dL (0.6-1.0); GFR1 > 60 mL/min; GLUCOSE SERUM 199 mg/dL (74-106); POTASSIUM SERUM 4.3 mmol/L (3.5-5.1); SODIUM SERUM 137 mmol/L (136-145)
[2017-12-04 08:32] LABS: BASOPHIL % 0.2 % (0-2); PLATELET COUNT 275 x10^3mcL (130-400); RED CELL DISTRIBUTION WIDTH 13.3 % (11.5-14.5)
[2017-12-04 10:02] VITALS: BP 158/95
[2017-12-04 13:21] VITALS: BP 157/92
[2017-12-04] MEDS ORDERED: LIPI20 PO (17:02)
[2017-12-04] MEDS ORDERED: LISINOPRIL20 MG PO (17:03)
[2017-12-04] MEDS ORDERED: ECO81 PO (17:03)
[2017-12-04] MEDS ORDERED: LEVAQUIN750 MG PO (17:05)
[2017-12-04] MEDS ORDERED: LAC PO (17:07)
[2017-12-04] MEDS ORDERED: HUMULIN R100 U/1 M1 SC (17:26)
[2017-12-04 18:13] VITALS: BP 157/92
== END 2017-12-04 20:44 | disposition home or self-care (01) | DRG 637 ==
LOC: ED 22:07 → IC 11-29 00:53 → DU 12-02 14:16
PROVIDERS: Emergency Medicine; Family Medicine
PROC: 05JY3ZZ Inspection of Upper Vein, Percutaneous Approach (ICD-10-PCS; principal; 2017-11-29)
PROC: 02HV33Z Insertion of Infusion Device into Superior Vena Cava, Percutaneous Approach (ICD-10-PCS; 2017-11-29)
PROC: 0T9130Z Drainage of Left Kidney with Drainage Device, Percutaneous Approach (ICD-10-PCS; 2017-12-01)
DX: E11.10 Type 2 diabetes mellitus with ketoacidosis without coma (principal); N17.0 Acute kidney failure with tubular necrosis; N15.1 Renal and perinephric abscess; K86.1 Other chronic pancreatitis; E44.0 Moderate protein-calorie malnutrition; N13.30 Unspecified hydronephrosis; N12 Tubulo-interstitial nephritis, not specified as acute or chronic; E86.0 Dehydration; E78.5 Hyperlipidemia, unspecified; D64.9 Anemia, unspecified; E11.40 Type 2 diabetes mellitus with diabetic neuropathy, unspecified; E87.6 Hypokalemia; E83.39 Other disorders of phosphorus metabolism; Z79.4 Long term (current) use of insulin; Z83.3 Family history of diabetes mellitus; Z90.49 Acquired absence of other specified parts of digestive tract; Z82.49 Family history of ischemic heart disease and other diseases of the circulatory system; Z82.3 Family history of stroke; E83.42 Hypomagnesemia; B37.3 Candidiasis of vulva and vagina; E11.51 Type 2 diabetes mellitus with diabetic peripheral angiopathy without gangrene
CPT/HCPCS: 36556; 36600; 49406; 82962; 83880; 84439; J1450; J1642; J1815; J1885; J2001; J2060; J2250; J2270; J2405; J2543; J2765; J3010; J3260; J3475; J3480; J3490; J7030; J7040; Q0092; Q9967

== ENCOUNTER 2019-02-22 04:34 | Emergency (ER) | payer OTHER ==
[~2019-02-22] VITALS: Ht 162.6 cm; Wt 81.6 kg
[~2019-02-22 04:34] MED LIST changes: +ECO81 PO; +GABAPENTIN100 M2 PO; +HUMULIN R100 U/1 M1 SC; +LEVAQUIN750 MG PO; +LIPI20 PO; +LISINOPRIL20 MG PO; +NOVOLIN N100 U/ML SC
[2019-02-22 04:35] VITALS: Ht 162.6 cm; Wt 81.6 kg
[2019-02-22 05:22] LABS: BASOPHIL % 0.1 % (0-2); PLATELET COUNT 230 x10^3mcL (130-400); RED CELL DISTRIBUTION WIDTH 12.9 % (11.5-14.5)
[2019-02-22 05:32] LABS: CALCIUM 9.4 mg/dL (8.5-10.1); CARBON DIOXIDE 25.5 mmol/L (21-32); CHLORIDE SERUM 101 mmol/L (98-107); CREATININE SERUM 0.6 mg/dL (0.6-1.0); GFR1 > 60 mL/min; GLUCOSE SERUM 116 mg/dL (74-106); POTASSIUM SERUM 4.1 mmol/L (3.5-5.1); SODIUM SERUM 138 mmol/L (136-145)
[2019-02-22 05:43] LABS: T3 TOTAL 0.46 ng/mL
[2019-02-22 05:46] LABS: LIPASE 30 IU/L (73-393)
[2019-02-22 05:52] LABS: CK-MB < 0.5 ng/mL (0-3.6); CREATINE KINASE 30 U/L (26-192); FREE T4 1.24 ng/dL (0.76-1.46); FREE THYROXINE INDEX 2.7 ug/dL (1.4-4.5)
[2019-02-22 05:55] LABS: ALKALINE PHOSPHATASE 100 U/L (46-116); ALT/SGPT 23 U/L (14-59); AST/SGOT 18 U/L (15-37); BILIRUBIN TOTAL 0.5 mg/dL (0.20-1.00); C REACTIVE PROTEIN 11.9 mg/dL (<=0.9); TOTAL PROTEIN, SERUM 7.3 g/dL (6.4-8.2)
[2019-02-22 05:59] LABS: ALBUMIN 3.3 g/dL (3.4-5.0)
[2019-02-22 06:04] LABS: ERYTHROCYTE SED RATE 57 mm/hr (0-20)
[2019-02-22 06:37] LABS: microscopic required? YES; urine erythrocyte 2+ (NEGATIVE)
[2019-02-22 07:24] LABS: AMPHETAMINE QUAL UR NONE DETECTED (See below)
[2019-02-22 08:31] VITALS: BP 100/58
== END 2019-02-22 08:31 | disposition home or self-care (01) ==
LOC: ED 04:34
PROVIDERS: Specialist
DX: N39.0 Urinary tract infection, site not specified (principal)
CPT/HCPCS: 36600; 82962; 84439; G0480; J2405; J7030; Q0092